=== PATIENT | male | born 1975 | race Caucasian/White ===

== ENCOUNTER 2024-05-10 20:38 | Emergency (ER) | payer MEDICAID ==
[~2024-05-10] VITALS: Ht 177.8 cm; Wt 99.1 kg
[2024-05-10 21:17] VITALS: BP 148/86; PULSE 110; RESP 20; O2SAT 98
[2024-05-10] MEDS ORDERED: VALA10002 PO (21:41)
[2024-05-10] MEDS: valacyclovir 500mg tablet PO STA (22:40)
[2024-05-10 22:42] VITALS: TEMP 98.1
[2024-05-15 05:27] LABS: HSV 1 PCR Negative (Negative); HSV 2 PCR Negative (Negative)
== END 2024-05-10 23:34 | disposition home or self-care (01) ==
LOC: ER 20:39
DX: Z20.2 Contact with and (suspected) exposure to infections with a predominantly sexual mode of transmission (principal); F41.9 Anxiety disorder, unspecified
CPT/HCPCS: 36415; 87529; 99283

== ENCOUNTER 2024-05-18 11:27 | Emergency (ER) | payer MEDICAID ==
[~2024-05-18] VITALS: Ht 177.8 cm; Wt 102.8 kg
[~2024-05-18 11:27] MED LIST: VALA10002 PO
[2024-05-18 11:29] VITALS: BP 159/85; PULSE 80; RESP 16; TEMP 98.3; O2SAT 96
== END 2024-05-18 13:35 | disposition home or self-care (01) ==
LOC: ER 11:28
DX: Z20.828 Contact with and (suspected) exposure to other viral communicable diseases (principal)
CPT/HCPCS: 99281

== ENCOUNTER 2024-08-24 12:15 | Emergency (ER) | payer MEDICAID ==
[~2024-08-24] VITALS: Ht 177.8 cm; Wt 104.6 kg
[2024-08-24 12:44] VITALS: BP 136/84; PULSE 76; RESP 16; TEMP 98.2; O2SAT 95
[2024-08-24] MEDS ORDERED: COROS RIGHTEYE (15:05)
== END 2024-08-24 15:14 | disposition home or self-care (01) ==
LOC: ER 12:16
DX: H10.89 Other conjunctivitis (principal); Z79.899 Other long term (current) drug therapy
CPT/HCPCS: 99283